=== PATIENT | female | born 1940 | race Hispanic/Latino ===

== ENCOUNTER 2018-09-24 19:22 | Observation (INO) | payer MEDICARE ==
[2018-09-24 19:22] VITALS: PULSE 81
[2018-09-24 19:30] VITALS: BMI 26.1
[2018-09-24 19:41] VITALS: RESP 18
--- NOTE | 2018-09-24 20:25 | ED PDOC ---
Arrival/HPI - History of Present Illness Narrative History of Present Illness (Text): 09/24/18 20:39 Patient is a 78-year-old F with PMH of Atrial Fibrillation (on Pradaxa) CAD s/p stents x 3, cholelithiasis, HTN, HLD, who Presents to [facility] [facility] Department for left shoulder pain that began 2 days ago. Patient reports she was vacuuming when she noticed sudden onset left shoulder pain that was constant and non- radiating. Patient quantifies the pain as 5/10 at its worst. Provoking factors include shoulder flexion and abduction past 90 degrees. Patient denies anything helping with the pain. Of note, Patient also admits to intermittent throbbing chest pain and states she has "a heart condition." Patient otherwise denies recent illness, travel, trauma, SOB, dizziness, BAHENA, fever, numbness/tingling, edema, and/or rash. PMH: CAD, cholelithiasis, HTN, A-fib, HLD PSH: Thyroid surgery (2012), Cardiac Stent x 3 (1994) SH: Current Smoker x 1ppd, Social ETOH - avg 2 drinks /mo, Denies illicit drug use; lives in senior apartment complex, ambulates without assistance FH: Father @ 45 2/2 SC, Sister @65 2/2 SC, Mom 2/2 stroke Home Meds: Pradaxa 150mg daily, Digoxin 0.125 mg daily, Crestor 5mg HS, Metoprolol 25mg daily, Furosomide 40mg daily, Amlodipine 10mg daily All: Seasonal Pollen (Itching throat) [facility] PCP: Mony Time/Duration: < week (48 hours) Symptom Onset: Sudden Symptom Course: Unchanged Quality: Aching, Throbbing Severity Level: 5 Activities at Onset: Light (vacuuming) <Lukasz Rebollar - Last Filed: 09/24/18 21:35> - General Historian: Patient <Tristin Yi - Last Filed: 09/24/18 22:21> - General Chief Complaint: Upper Extremity Problem/Injury Time Seen by Provider: 09/24/18 19:36 Past Medical History - Provider Review Nursing Documentation Reviewed: Yes - Infectious Disease Hx of Infectious Diseases: None - Tetanus Immunization Tetanus Immunization: Unknown - Cardiac Hx Cardiac Disorders: Yes Hx Cardiac Arrhythmia: Yes Hx Pacemaker: No - Pulmonary Hx Respiratory Disorders: No (SMOKES > 3PPD) - Neurological Hx Neurological Disorder: Yes Hx Transient Ischemic Attacks (TIA): Yes - HEENT Hx HEENT Disorder: Yes (LEFT EAR INFECTION) - Renal Hx Renal Disorder: No - Endocrine/Metabolic Hx Endocrine Disorders: Yes Hx Diabetes Mellitus Type 2: Yes - Hematological/Oncological Hx Blood Transfusions: No Hx Blood Transfusion Reaction: No - Integumentary Hx Dermatological Disorder: No - Musculoskeletal/Rheumatological Hx Musculoskeletal Disorders: Yes Hx Falls: No Hx Herniated Disk: Yes - Gastrointestinal Hx Gastrointestinal Disorders: Yes Hx Gall Bladder Disease: Yes (CHOLECYSTECTOMY) - Genitourinary/Gynecological Hx Genitourinary Disorders: No - Psychiatric Hx Emotional Abuse: No Hx Physical Abuse: No Hx Substance Use: No - Past Surgical History Past Surgical History: No Previous - Surgical History Hx Cardiac Catheterization: Yes Hx Cholecystectomy: Yes Hx Coronary Stent: Yes (x3) - Anesthesia Hx Anesthesia Reactions: No Hx Malignant Hyperthermia: No - Suicidal Assessment Feels Threatened In Home Enviroment: No <Lukasz Rebollar - Last Filed: 09/24/18 21:35> Family/Social History - Physician Review Nursing Documentation Reviewed: Yes Family/Social History: CAD/SC Smoking Status: Former Smoker Hx Alcohol Use: Yes (OCCASIONALLY) Hx Substance Use: No <Lukasz Rebollar - Last Filed: 09/24/18 21:35> Allergies/Home Meds <Lukasz Rebollar - Last Filed: 09/24/18 21:35> <Tristin Yi - Last Filed: 09/24/18 22:21> Allergies/Adverse Reactions: Allergies No Known Allergies Allergy (Verified 06/17/16 16:10) Home Medications: Home Meds Medication Instructions Recorded Confirmed Dabigatran [Pradaxa] 150 mg PO DAILY 09/24/18 09/24/18 Digoxin [Digitek] 125 mcg PO DAILY 09/24/18 09/24/18 Furosemide [Lasix] 40 mg PO DAILY 09/24/18 09/24/18 Metoprolol Succinate [Kapspargo 25 mg PO DAILY 09/24/18 09/24/18 Sprinkle] Rosuvastatin Calcium [Crestor] 5 mg PO HS 09/24/18 09/24/18 amLODIPine [Norvasc] 10 mg PO DAILY 09/24/18 09/24/18 Review of Systems - Review of Systems Constitutional: Normal. absent: Fevers Eyes: Normal. absent: Vision Changes, Eye Pain ENT: Normal Respiratory: Normal. absent: SOB, Cough, Wheezing Cardiovascular: Chest Pain. absent: Palpitations, Edema, Calf Pain, Syncope Gastrointestinal: Normal. absent: Abdominal Pain, Diarrhea, Nausea, Vomiting Genitourinary Female: Normal. absent: Dysuria Musculoskeletal: Other (left shoulder pain ) Skin: Normal. absent: Rash Neurological: Normal. absent: Headache, Dizziness, Focal Weakness Endocrine: Normal Hemo/Lymphatic: Normal Psychiatric: Normal <Lukasz Rebollar - Last Filed: 09/24/18 21:35> - Physician Review All systems were reviewed & negative as marked: Yes <Tristin Yi - Last Filed: 09/24/18 22:21> Physical Exam Vital Signs Reviewed: Yes Vital Signs Temp Pulse Resp BP Pulse Ox 09/24/18 19:40 97.6 F 91 H 18 140/99 H 97 Temperature: Afebrile Blood Pressure: Hypertensive Pulse: Irregular Respiratory Rate: Normal Appearance: Positive for: Well-Appearing, Non-Toxic, Comfortable Pain Distress: None Mental Status: Positive for: Alert and Oriented X 3 - Systems Exam Head: Present: Atraumatic, Normocephalic. No: Tenderness, Contusion Pupils: Present: PERRL Extroacular Muscles: Present: EOMI Conjunctiva: Present: Normal. No: Icteric Mouth: Present: Moist Mucous Membranes Neck: Present: Normal Range of Motion. No: Meningeal Signs, MIDLINE TENDERNESS, JVD Respiratory/Chest: Present: Clear to Auscultation, Good Air Exchange. No: Respiratory Distress, Accessory Muscle Use, Wheezes, Decreased Breath Sounds, Rales, Retracting, Rhonchi, Tachypneic Cardiovascular: Present: Irregular Rhythm. No: Murmurs Abdomen: Present: Normal Bowel Sounds. No: Tenderness, Distention, Peritoneal Signs Back: Present: Normal Inspection. No: CVA Tenderness, Midline Tenderness Upper Extremity: Present: Normal Inspection, Normal ROM (Normal L shoulder passive ROM; decreased L shoudler ROM with active flexion and abduction ), NORMAL PULSES, Neurovascularly Intact. No: Cyanosis, Edema, Tenderness, Swelling, Deformity Lower Extremity: Present: Normal Inspection. No: Edema Neurological: Present: GCS=15, CN II-XII Intact, Speech Normal Skin: Present: Warm, Dry, Normal Color. No: Rashes <Lukasz Rebollar - Last Filed: 09/24/18 21:35> Vital Signs Temp Pulse Resp BP Pulse Ox 09/24/18 19:40 97.6 F 91 H 18 140/99 H 97 <Tristin Yi - Last Filed: 09/24/18 22:21> Medical Decision Making ED Course and Treatment: 09/24/18 20:55 IMPRESSION: Patient is a 78-year-old F with PMH of Atrial Fibrillation (on Pradaxa) CAD s/p stents x 3, cholelithiasis, HTN, HLD, who Presents to [facility] Emergency Department for left shoulder pain that began 2 days ago. ASSESSMENT: - Atrial Fibrillation - Left Shoulder Pain PLAN: - EKG - CXR - CBC - CMP - Troponin - PT/PTT 09/24/18 20:57 CBC reveals mild leukocytosis 09/24/18 21:[address] Samayoa and Resident Physician. Patient accepted under Dr. Samayoa's service for observation in Telemetry; Rule-Out ACS - RAD Interpretation Radiology Orders: 09/24/18 20:06 CHEST PORTABLE [RAD] Stat - EKG Interpretation EKG Interpretation (Text): 09/24/18 20:54 atrial fibrillation; unchanged from previous <Lukasz Rebollar - Last Filed: 09/24/18 21:35> ED Course and Treatment: In agreement with resident note, which includes further HPI details. Patient was seen and evaluated with resident, came up with plan and treatment together. 78 year old female presents left shoulder pain that began 2 days ago and also admits to intermittent throbbing chest pain due to a "heart condition". Plan: -- Labs -- EKG -- Chest X-ray -- Urinalysis CXR Impression: As read by me, no acute process. - Lab Interpretations Lab Results: PT 13.7 SECONDS (9.4-12.5) H 09/24/18 19:45 INR 1.23 09/24/18 19:45 APTT 60.0 Seconds (26.9-38.3) H 09/24/18 19:45 Troponin I < 0.01 ng/mL 09/24/18 19:45 Total Bilirubin 0.7 mg/dL (0.2-1.3) 09/24/18 19:45 AST 29 U/L (14-36) 09/24/18 19:45 ALT 24 U/L (7-56) 09/24/18 19:45 Alkaline Phosphatase 107 U/L (38-126) 09/24/18 19:45 Total Protein 8.0 g/dL (5.8-8.3) 09/24/18 19:45 Albumin 4.4 g/dL (3.0-4.8) 09/24/18 19:45 Globulin 3.6 gm/dL 09/24/18 19:45 Albumin/Globulin Ratio 1.2 (1.1-1.8) 09/24/18 19:45 I have reviewed the lab results: Yes - RAD Interpretation Radiology Orders: 09/24/18 20:06 CHEST PORTABLE [RAD] Stat Ampoule Sealer: ED Physician - EKG Interpretation Interpreted by ED Physician: Yes Type: 12 lead EKG <Tristin Yi - Last Filed: 09/24/18 22:21> - PA / SPINNING MACHINE TENDER / Resident Statement MD/DO has reviewed & agrees with the documentation as recorded. MD/DO has examined the patient and agrees with the treatment plan. - Scribe Statement The provider has reviewed the documentation as recorded by the Vita Johnson Provider Scribe Attestation: All medical record entries made by the Lucitaibmercedes were at my direction and personally dictated by me. I have reviewed the chart and agree that the record accurately reflects my personal performance of the history, physical exam, medical decision making, and the department course for this patient. I have also personally directed, reviewed, and agree with the discharge instructions and disposition. <Tristin Yi - Last Filed: 09/24/18 22:21> Disposition/Present on Arrival - Present on Arrival Any Indicators Present on Arrival: No History of DVT/PE: No History of Uncontrolled Diabetes: No Urinary Catheter: No History of Decub. Ulcer: No History Surgical Site Infection Following: None - Disposition Have Diagnosis and Disposition been Completed?: Yes Disposition Time: 21:37 Patient Plan: Observation, Telemetry <Lukasz Rebollar - Last Filed: 09/24/18 21:35> <Tristin Yi - Last Filed: 09/24/18 22:21> - Disposition Diagnosis: Chest pain, Shoulder pain, left Disposition: HOSPITALIZED Patient Problems: Current Active Problems Problem Status Onset Chest pain Acute Shoulder pain, left Acute Condition: GUARDED
[2018-09-24 20:45] LABS: BASO # 0.03 K/mm3 (0.0-2.0); BASO % 0.2 % (0.0-3.0); EOS # 0.1 (0.0-0.7); EOS % 0.8 % (1.5-5.0); HEMOGLOBIN 15.3 g/dL (12.0-16.0); LYMPH # 3.9 (1.2-3.4); LYMPH % 27.8 % (22.0-35.0); MEAN CELL VOLUME 92.2 fl (80.0-105.0); MEAN CORPUSCULAR HEMOGLOBIN 30.7 pg (25.0-35.0); MEAN CORPUSCULAR HGB CONC 33.3 g/dl (31.0-37.0); MEAN PLATELET VOLUME 10.7 fl (7.0-11.0); MONO # 1.2 (0.1-0.6); MONO % 8.4 % (1.0-6.0); RBC 4.98 10^6/uL (3.5-6.1); RED CELL DISTRIBUTION WIDTH 13.8 % (11.5-14.5); WHITE BLOOD COUNT 13.9 10^3/uL (4.5-11.0)
[2018-09-24 20:48] LABS: INR 1.23; PROTHROMBIN TIME 13.7 SECONDS (9.4-12.5)
[2018-09-24 20:52] LABS: ALB/GLOB RATIO 1.2 (1.1-1.8); ALBUMIN 4.4 g/dL (3.0-4.8); BLOOD UREA NITROGEN 16 mg/dL (7-21); CALCIUM 9.2 mg/dL (8.4-10.5); GFR NON-AFRICAN AMERICAN > 60
[2018-09-24 20:58] LABS: ALT/SGPT 24 U/L (7-56); AST/SGOT 29 U/L (14-36)
[2018-09-24 21:11] LABS: TROPONIN I < 0.01 ng/mL
[2018-09-24 22:47] LABS: HDL CHOLESTEROL 39 mg/dL (29-60)
[2018-09-24 22:58] LABS: LDL CHOLESTEROL 88 mg/dL (0-129)
[2018-09-24 23:05] LABS: FREE T4 0.73 ng/dL (0.78-2.19)
--- NOTE | 2018-09-24 23:17 | CP.PCM.HP ---
<AnkitFrantz - Last Filed: 09/25/18 01:37> History of Present Illness - History of Present Illness History of Present Illness: Frantz Pham, PGY1 H&P Note for Dr. Banks cc: "cp with left shoulder pain x1 day ago" Patient is a 78-year-old F with PMH of Atrial Fibrillation (on Pradaxa) CAD s/p stents x 3, cholelithiasis, HTN, HLD, DM II who [place] [facility] [place] for chest pain and left shoulder pain that began 1 day ago. In the ED, Vitals: Temp 97.6, HR 91, RR 18, BP 140/99, SaO2 97%. EKG showed afib which is unchanged from prior. CXR showed no active disease. Medical team evaluated patient in the ED. Patient reports she was vacuuming when she noticed sudden onset left shoulder pain that was constant. It is non-radiating. In the ED, pain was rated 5/10 at its worst. Pain is worse with movement of the left shoulder. Patient denies anything helping with the pain. Patient also has associated chest pain. She says the pain feels pressure like, it is located along the left axillary area and it also worsened with movement. Patient says that the chest pain does not feel like the DC that she had prior. Coughing makes the pain worse. She also endorsed watery eyes and occasional runny nose. Patient otherwise denies recent illness, travel, and trauma to the area. She denies SOB, dizziness, lightheadedness, headache, fever, numbness/tingling of the extremities. A full 12 point ROS was conducted and unremarkable except as stated above. PMD: [place] Pharmacy: [facility] PMH: CAD (stents x3), cholelithiasis, HTN, HLD, A-fib (on Pradaxa), HLD, DMII PSH: Thyroid surgery (2012), Cardiac Stent x 3 (1994) SH: Current Smoker x 1ppd, Social ETOH - avg 2 drinks /mo, Denies illicit drug use; lives in senior apartment complex, ambulates without assistance FH: Father @ 45 2/2 DC, Sister @65 2/2 DC, Mom 2/2 stroke Home Meds: Pradaxa 150mg daily, Digoxin 0.125 mg daily, Crestor 5mg HS, Metoprolol 25mg daily, Furosomide 40mg daily, Amlodipine 10mg daily All: Seasonal Pollen (Itching throat) Present on Admission - Present on Admission Any Indicators Present on Admission: No Past Patient History - Infectious Disease Hx of Infectious Diseases: None - Tetanus Immunizations Tetanus Immunization: Unknown - Past Social History Smoking Status: Heavy Smoker > 10 Cigarettes Daily - CARDIAC Hx Cardiac Disorders: Yes Hx Cardia Arrhythmia: Yes (afib on pradaxa) Hx Congestive Heart Failure: No Hx Pacemaker: No - PULMONARY Hx Respiratory Disorders: Yes (SMOKES > 1PPD) - NEUROLOGICAL Hx Neurological Disorder: No Hx Transient Ischemic Attacks (TIA): No (denies) - HEENT Hx HEENT Problems: Yes (LEFT EAR INFECTION) - RENAL Hx Chronic Kidney Disease: No - ENDOCRINE/METABOLIC Hx Endocrine Disorders: No Hx Diabetes Mellitus Type 2: No (boarderline) - HEMATOLOGICAL/ONCOLOGICAL Hx Blood Disorders: No - INTEGUMENTARY Hx Dermatological Problems: No - MUSCULOSKELETAL/RHEUMATOLOGICAL Hx Musculoskeletal Disorders: Yes Hx Falls: No Hx Fractures: Yes (left wrist) - GASTROINTESTINAL Hx Gastrointestinal Disorders: Yes Hx Gall Bladder Disease: Yes (CHOLECYSTECTOMY) - GENITOURINARY/GYNECOLOGICAL Hx Genitourinary Disorders: No - PSYCHIATRIC Hx Psychophysiologic Disorder: No Hx Emotional Abuse: No Hx Physical Abuse: No - SURGICAL HISTORY Hx Surgeries: Yes (stent placement, thyroidectomy) Hx Cardiac Catheterization: Yes Hx Cholecystectomy: Yes Hx Coronary Stent: Yes (x3) - ANESTHESIA Hx Anesthesia Reactions: No Hx Malignant Hyperthermia: No Meds Allergies/Adverse Reactions: Allergies Allergy/AdvReac Type Severity Reaction Status Date / Time No Known Allergies Allergy Verified 06/17/16 16:10 Physical Exam - Constitutional Appears: No Acute Distress - Head Exam Head Exam: ATRAUMATIC, NORMAL INSPECTION, NORMOCEPHALIC - Eye Exam Eye Exam: EOMI, Normal appearance - ENT Exam ENT Exam: Mucous Membranes Moist, Normal Exam - Respiratory Exam Respiratory Exam: Clear to Auscultation Bilateral, NORMAL BREATHING PATTERN. absent: Rales, Rhonchi, Wheezes - Cardiovascular Exam Cardiovascular Exam: RRR, +S1, +S2 Additional comments: Pain is not reproducible on exam. Patient has prominent xiphoid process. - GI/Abdominal Exam GI & Abdominal Exam: Normal Bowel Sounds, Soft. absent: Distended, Guarding, Rebound, Rigid, Tenderness - Extremities Exam Extremities exam: Positive for: normal capillary refill, normal inspection, pe kaela pulses present. Negative for: calf tenderness, pedal edema, tenderness - Back Exam Back exam: NORMAL INSPECTION - Neurological Exam Neurological exam: Alert, Oriented x3 - Psychiatric Exam Psychiatric exam: Normal Affect, Normal Mood - Skin Skin Exam: Dry, Intact, Normal Color, Warm Results - Vital Signs Recent Vital Signs: Last Vital Signs Temp 97.6 F 09/24/18 19:40 Pulse 91 H 09/24/18 19:40 Resp 18 09/24/18 22:47 BP 140/99 H 09/24/18 19:40 Pulse Ox 97 09/24/18 19:40 - Labs Result Diagrams: 09/24/18 19:45 09/24/18 19:45 Labs: Laboratory Results - last 24 hr 09/24/18 09/24/18 09/24/18 19:45 19:45 19:45 WBC 13.9 H RBC 4.98 Hgb 15.3 Hct 45.9 MCV 92.2 MCH 30.7 MCHC 33.3 RDW 13.8 Plt Count 242 MPV 10.7 Neut % (Auto) 62.8 Lymph % (Auto) 27.8 Hickman % (Auto) 8.4 H Eos % (Auto) 0.8 L Baso % (Auto) 0.2 Lymph # (Auto) 3.9 H Hickman # (Auto) 1.2 H Eos # (Auto) 0.1 Baso # (Auto) 0.03 Absolute Neuts (auto) 8.73 H PT 13.7 H INR 1.23 APTT 60.0 H Sodium 142 Potassium 3.4 L Chloride 106 Carbon Dioxide 26 Anion Gap 14 BUN 16 Creatinine 0.6 L Est GFR ( Amer) > 60 Est GFR (Non-Af Amer) > 60 Random Glucose 111 H Calcium 9.2 Total Bilirubin 0.7 AST 29 ALT 24 Alkaline Phosphatase 107 Troponin I < 0.01 Total Protein 8.0 Albumin 4.4 Globulin 3.6 Albumin/Globulin Ratio 1.2 Triglycerides Cholesterol LDL Cholesterol Direct HDL Cholesterol Free T4 09/24/18 09/24/18 19:45 19:45 WBC RBC Hgb Hct MCV MCH MCHC RDW Plt Count MPV Neut % (Auto) Lymph % (Auto) Hickman % (Auto) Eos % (Auto) Baso % (Auto) Lymph # (Auto) Hickman # (Auto) Eos # (Auto) Baso # (Auto) Absolute Neuts (auto) PT INR APTT Sodium Potassium Chloride Carbon Dioxide Anion Gap BUN Creatinine Est GFR ( Amer) Est GFR (Non-Af Amer) Random Glucose Calcium Total Bilirubin AST ALT Alkaline Phosphatase Troponin I Total Protein Albumin Globulin Albumin/Globulin Ratio Triglycerides 111 Cholesterol 152 LDL Cholesterol Direct 88 HDL Cholesterol 39 Free T4 0.73 L Assessment & Plan - Assessment and Plan (Free Text) Assessment: Patient is a 78-year-old F with PMH of Atrial Fibrillation (on Pradaxa) CAD s/p stents x 3, cholelithiasis, HTN, HLD, DM II who [place] [facility] [place] chest pain and left shoulder pain that began 1 day ago. Patient will be admitted for chest pain likely musculoskeletal - r/o ACS. Plan: Chest Pain - r/o ACS, likely musculoskeletal origin - Lidoderm patch to the left shoulder - Flexeril 5 mg HS - Cardio consulted (Dr. Reynolds). Follow up recs. - Tylenol q6 prn for pain control - trop negative x1; trend trops - TSH - A1c - Lipid panel - EKG: showed Afib without RVR, unchanged from previous. Hx of Afib - Digoxin toxicity level negative - c/w digoxin home med for rate control - c/w Pradaxa Hx Smoking - counseled on smoking cessation - nicotine patch Hx HLD - c/w Lipitor home med - lipid panel ordered Hx HTN - c/w Norvasc home med - c/w metoprolol home med Diet: HHD Dispo: will monitor patient on the floor. Case was discussed and reviewed with Attending Physician, Dr. Banks <Olive Banks - Last Filed: 09/25/18 18:57> Results - Vital Signs Recent Vital Signs: Last Vital Signs Temp 97.8 F 09/25/18 07:40 Pulse 55 L 09/25/18 10:24 Resp 18 09/25/18 07:40 BP 121/64 09/25/18 10:25 Pulse Ox 94 L 09/25/18 07:40 - Labs Result Diagrams: 09/25/18 05:00 09/25/18 05:00 Labs: Laboratory Results - last 24 hr 09/24/18 09/24/18 09/24/18 19:45 19:45 19:45 WBC 13.9 H RBC 4.98 Hgb 15.3 Hct 45.9 MCV 92.2 MCH 30.7 MCHC 33.3 RDW 13.8 Plt Count 242 MPV 10.7 Neut % (Auto) 62.8 Lymph % (Auto) 27.8 Hickman % (Auto) 8.4 H Eos % (Auto) 0.8 L Baso % (Auto) 0.2 Lymph # (Auto) 3.9 H Hickman # (Auto) 1.2 H Eos # (Auto) 0.1 Baso # (Auto) 0.03 Absolute Neuts (auto) 8.73 H PT 13.7 H INR 1.23 APTT 60.0 H Sodium 142 Potassium 3.4 L Chloride 106 Carbon Dioxide 26 Anion Gap 14 BUN 16 Creatinine 0.6 L Est GFR ( Amer) > 60 Est GFR (Non-Af Amer) > 60 Random Glucose 111 H Hemoglobin A1c Calcium 9.2 Magnesium Total Bilirubin 0.7 AST 29 ALT 24 Alkaline Phosphatase 107 Troponin I < 0.01 Total Protein 8.0 Albumin 4.4 Globulin 3.6 Albumin/Globulin Ratio 1.2 Triglycerides Cholesterol LDL Cholesterol Direct HDL Cholesterol Free T4 TSH 3rd Generation Digoxin 09/24/18 09/24/18 09/24/18 19:45 19:45 19:45 WBC RBC Hgb Hct MCV MCH MCHC RDW Plt Count MPV Neut % (Auto) Lymph % (Auto) Hickman % (Auto) Eos % (Auto) Baso % (Auto) Lymph # (Auto) Hickman # (Auto) Eos # (Auto) Baso # (Auto) Absolute Neuts (auto) PT INR APTT Sodium Potassium Chloride Carbon Dioxide Anion Gap BUN Creatinine Est GFR ( Amer) Est GFR (Non-Af Amer) Random Glucose Hemoglobin A1c 6.7 H Calcium Magnesium Total Bilirubin AST ALT Alkaline Phosphatase Troponin I Total Protein Albumin Globulin Albumin/Globulin Ratio Triglycerides 111 Cholesterol 152 LDL Cholesterol Direct 88 HDL Cholesterol 39 Free T4 0.73 L TSH 3rd Generation 6.92 H Digoxin 09/24/18 09/25/18 09/25/18 19:45 00:15 05:00 WBC RBC Hgb Hct MCV MCH MCHC RDW Plt Count MPV Neut % (Auto) Lymph % (Auto) Hickman % (Auto) Eos % (Auto) Baso % (Auto) Lymph # (Auto) Hickman # (Auto) Eos # (Auto) Baso # (Auto) Absolute Neuts (auto) PT INR APTT Sodium 140 Potassium 4.2 Chloride 108 H Carbon Dioxide 27 Anion Gap 9 L BUN 14 Creatinine 0.6 L Est GFR ( Amer) > 60 Est GFR (Non-Af Amer) > 60 Random Glucose 101 Hemoglobin A1c Calcium 8.8 Magnesium 2.0 Total Bilirubin 1.4 H AST 28 ALT 20 Alkaline Phosphatase 89 Troponin I < 0.01 < 0.01 Total Protein 7.2 Albumin 4.0 Globulin 3.2 Albumin/Globulin Ratio 1.3 Triglycerides Cholesterol LDL Cholesterol Direct HDL Cholesterol Free T4 TSH 3rd Generation Digoxin < 0.4 L 09/25/18 09/25/18 05:00 12:00 WBC 10.7 D RBC 4.65 Hgb 14.3 Hct 42.8 MCV 92.0 MCH 30.8 MCHC 33.4 RDW 13.8 Plt Count 215 MPV 10.5 Neut % (Auto) 58.4 Lymph % (Auto) 30.6 Hickman % (Auto) 10.0 H Eos % (Auto) 0.7 L Baso % (Auto) 0.3 Lymph # (Auto) 3.3 Hickman # (Auto) 1.1 H Eos # (Auto) 0.1 Baso # (Auto) 0.03 Absolute Neuts (auto) 6.24 PT INR APTT Sodium Potassium Chloride Carbon Dioxide Anion Gap BUN Creatinine Est GFR ( Amer) Est GFR (Non-Af Amer) Random Glucose Hemoglobin A1c Calcium Magnesium Total Bilirubin AST ALT Alkaline Phosphatase Troponin I < 0.01 Total Protein Albumin Globulin Albumin/Globulin Ratio Triglycerides Cholesterol LDL Cholesterol Direct HDL Cholesterol Free T4 TSH 3rd Generation Digoxin Attending/Attestation - Attestation I have personally seen and examined this patient.: Yes I have fully participated in the care of the patient.: Yes I have reviewed all pertinent clinical information: Yes
[2018-09-25] MEDS ORDERED: Potassium Chloride 20 mEq ER Tab PO ONE (04:55)
[2018-09-25] MEDS ORDERED: Pantoprazole 40 mg EC Tab PO SCH (06:00)
[2018-09-25 06:36] LABS: BASO # 0.03 K/mm3 (0.0-2.0); BASO % 0.3 % (0.0-3.0); EOS # 0.1 (0.0-0.7); EOS % 0.7 % (1.5-5.0); HEMOGLOBIN 14.3 g/dL (12.0-16.0); LYMPH # 3.3 (1.2-3.4); LYMPH % 30.6 % (22.0-35.0); MEAN CORPUSCULAR HEMOGLOBIN 30.8 pg (25.0-35.0); MEAN CORPUSCULAR HGB CONC 33.4 g/dl (31.0-37.0); MEAN PLATELET VOLUME 10.5 fl (7.0-11.0); MONO # 1.1 (0.1-0.6); RBC 4.65 10^6/uL (3.5-6.1); RED CELL DISTRIBUTION WIDTH 13.8 % (11.5-14.5); WHITE BLOOD COUNT 10.7 10^3/uL (4.5-11.0)
[2018-09-25 06:41] LABS: ALB/GLOB RATIO 1.3 (1.1-1.8); ALT/SGPT 20 U/L (7-56); AST/SGOT 28 U/L (14-36); BLOOD UREA NITROGEN 14 mg/dL (7-21); CALCIUM 8.8 mg/dL (8.4-10.5); GFR NON-AFRICAN AMERICAN > 60
[2018-09-25 06:53] LABS: TROPONIN I < 0.01 ng/mL
[2018-09-25 07:40] VITALS: BP 121/64; PULSE 55; TEMP 97.8; O2SAT 94
[2018-09-25] MEDS ORDERED: Metoprolol Succinate 25 mg XL Tab PO SCH (10:00)
[2018-09-25] MEDS ORDERED: Lidocaine 5% Patch TD SCH (10:00)
[2018-09-25] MEDS ORDERED: Digoxin 125 mcg (0.125 mg) Tab PO SCH (14:00)
--- NOTE | 2018-09-25 17:57 | RAD ---
Date of service: 09/24/2018 HISTORY: chest pain COMPARISON: Comparison is made with 03/16/2018 FINDINGS: LUNGS: No active pulmonary disease. PLEURA: No significant pleural effusion identified, no pneumothorax apparent. CARDIOVASCULAR: No aortic atherosclerotic calcification present. Normal cardiac size. No pulmonary vascular congestion. OSSEOUS STRUCTURES: No significant abnormalities. VISUALIZED UPPER ABDOMEN: Normal. OTHER FINDINGS: None. IMPRESSION: No active disease.
--- NOTE | 2018-09-25 18:35 | CP.PCM.DIS ---
Provider - Provider Date of Admission: 09/24/18 21:36 Attending physician: Belkis Pantoja MD Primary care physician: Florin Manrique MD Consults: 09/24/18 22:33 Physician Consult Routine Comment: Consulting Provider: Terry Reynolds Consulting Physician: Terry Reynolds Reason for Consult: chest pain r/o ACS; Hx of CAD Time Spent in preparation of Discharge (in minutes): 45 Diagnosis - Discharge Diagnosis (1) Chest pain Status: Acute (2) Shoulder pain, left Status: Acute Hospital Course - Lab Results Lab Results: Most Recent Lab Values WBC 10.7 10^3/uL (4.5-11.0) D 09/25/18 05:00 RBC 4.65 10^6/uL (3.5-6.1) 09/25/18 05:00 Hgb 14.3 g/dL (12.0-16.0) 09/25/18 05:00 Hct 42.8 % (36.0-48.0) 09/25/18 05:00 MCV 92.0 fl (80.0-105.0) 09/25/18 05:00 MCH 30.8 pg (25.0-35.0) 09/25/18 05:00 MCHC 33.4 g/dl (31.0-37.0) 09/25/18 05:00 RDW 13.8 % (11.5-14.5) 09/25/18 05:00 Plt Count 215 10^3/uL (120.0-450.0) 09/25/18 05:00 MPV 10.5 fl (7.0-11.0) 09/25/18 05:00 Neut % (Auto) 58.4 % (50.0-68.0) 09/25/18 05:00 Lymph % (Auto) 30.6 % (22.0-35.0) 09/25/18 05:00 Bullock % (Auto) 10.0 % (1.0-6.0) H 09/25/18 05:00 Eos % (Auto) 0.7 % (1.5-5.0) L 09/25/18 05:00 Baso % (Auto) 0.3 % (0.0-3.0) 09/25/18 05:00 Lymph # (Auto) 3.3 (1.2-3.4) 09/25/18 05:00 Bullock # (Auto) 1.1 (0.1-0.6) H 09/25/18 05:00 Eos # (Auto) 0.1 (0.0-0.7) 09/25/18 05:00 Baso # (Auto) 0.03 K/mm3 (0.0-2.0) 09/25/18 05:00 Absolute Neuts (auto) 6.24 (1.4-6.5) 09/25/18 05:00 PT 13.7 SECONDS (9.4-12.5) H 09/24/18 19:45 INR 1.23 09/24/18 19:45 APTT 60.0 Seconds (26.9-38.3) H 09/24/18 19:45 Sodium 140 mmol/L (132-148) 09/25/18 05:00 Potassium 4.2 mmol/L (3.6-5.0) 09/25/18 05:00 Chloride 108 mmol/L (98-107) H 09/25/18 05:00 Carbon Dioxide 27 mmol/L (21-33) 09/25/18 05:00 Anion Gap 9 (10-20) L 09/25/18 05:00 BUN 14 mg/dL (7-21) 09/25/18 05:00 Creatinine 0.6 mg/dl (0.7-1.2) L 09/25/18 05:00 Est GFR ( Amer) > 60 09/25/18 05:00 Est GFR (Non-Af Amer) > 60 09/25/18 05:00 Random Glucose 101 mg/dL (70-110) 09/25/18 05:00 Hemoglobin A1c 6.7 % (4.2-6.5) H 09/24/18 19:45 Calcium 8.8 mg/dL (8.4-10.5) 09/25/18 05:00 Magnesium 2.0 mg/dL (1.7-2.2) 09/25/18 05:00 Total Bilirubin 1.4 mg/dL (0.2-1.3) H 09/25/18 05:00 AST 28 U/L (14-36) 09/25/18 05:00 ALT 20 U/L (7-56) 09/25/18 05:00 Alkaline Phosphatase 89 U/L (38-126) 09/25/18 05:00 Troponin I < 0.01 ng/mL 09/25/18 12:00 Total Protein 7.2 g/dL (5.8-8.3) 09/25/18 05:00 Albumin 4.0 g/dL (3.0-4.8) 09/25/18 05:00 Globulin 3.2 gm/dL 09/25/18 05:00 Albumin/Globulin Ratio 1.3 (1.1-1.8) 09/25/18 05:00 Triglycerides 111 mg/dL (35-160) 09/24/18 19:45 Cholesterol 152 mg/dL (130-200) 09/24/18 19:45 LDL Cholesterol Direct 88 mg/dL (0-129) 09/24/18 19:45 HDL Cholesterol 39 mg/dL (29-60) 09/24/18 19:45 Free T4 0.73 ng/dL (0.78-2.19) L 09/24/18 19:45 TSH 3rd Generation 6.92 mIU/mL (0.46-4.68) H 09/24/18 19:45 Digoxin < 0.4 ng/mL (0.8-2.0) L 09/24/18 19:45 - Hospital Course Hospital Course: Upon Admission: Patient is a 78-year-old F with PMH of Atrial Fibrillation (on Pradaxa) CAD s/p stents x 3, cholelithiasis, HTN, HLD, DM II who presented to [facility] for chest pain and left shoulder pain that began 1 day ago. In the ED, Vitals: Temp 97.6, HR 91, RR 18, BP 140/99, SaO2 97%. EKG showed afib which is unchanged from prior. CXR showed no active disease. Medical team evaluated patient in the ED. Patient reports she was vacuuming when she noticed sudden onset left shoulder pain that was constant. It is non-radiating. In the ED, pain was rated 5/10 at its worst. Pain is worse with movement of the left shoulder. Patient denies anything helping with the pain. Patient also has associated chest pain. She says the pain feels pressure like, it is located along the left axillary area and it also worsened with movement. Patient says that the chest pain does not feel like the MO that she had prior. Coughing makes the pain worse. She also endorsed watery eyes and occasional runny nose. Patient otherwise denies recent illness, travel, and trauma to the area. She denies SOB, dizziness, lightheadedness, headache, fever, numbness/tingling of the extremities. Hospital Course: Pt was being worked up for chest pain r/o ACS. Pt had EKG in ED which showed Afib w/o RVR, unchanged from previous. Pt then had trops ordered which were trended and found to be negative x4. TSH was found to be elevated at 6.92, and free T4 was noted to be low at .73. Pt was started on low dose synthroid with follow up with her primary care doctor. Pts A1c was found to be elevated at 6.7. Pt was counseled on losing weight, low carb diet and regular exercise. Lipid panel for the pt was noted to be wnl. Cardio was consulted for the pt and cardio stated that the pt is cleared for d/c upon 3 negative trop values which were met later in the day. Pts pradaxa for afib was continued was continued during her hospitalization. HTN, the pts home norvasc and lopressor were resumed. For pts HLD, home lipitor was restarted., DM Upon gaining cardiac clearance the pt was informed of the plan for discharge. The pt expressed understanding and agreement with medical plan for discharge. All of pt and families questions were answered prior to d/c. For further details please refer to pts medical chart. Discharge Exam - Head Exam Head Exam: ATRAUMATIC, NORMAL INSPECTION, NORMOCEPHALIC - Eye Exam Eye Exam: EOMI, Normal appearance, PERRL - Respiratory Exam Respiratory Exam: Clear to PA & Lateral, Respiratory Distress, NORMAL BREATHING PATTERN, UNREMARKABLE. absent: Accessory Muscle Use, Rales, Rhonchi, Wheezes - Cardiovascular Exam Cardiovascular Exam: RRR, +S1, +S2. absent: Gallop, Rubs - GI/Abdominal Exam GI & Abdominal Exam: Normal Bowel Sounds, Soft, Unremarkable. absent: Distended, Firm, Guarding, Tenderness - Extremities Exam Extremities exam: normal inspection - Back Exam Back exam: NORMAL INSPECTION. absent: CVA tenderness (L), CVA tenderness (R) - Neurological Exam Neurological exam: Alert, Oriented x3 - Psychiatric Exam Psychiatric exam: Normal Affect, Normal Mood - Skin Skin Exam: Dry, Normal Color, Warm Discharge Plan - Discharge Medications Prescriptions: amLODIPine [Norvasc] 10 mg PO DAILY 30 Days #30 tab Aspirin [Adult Aspirin Regimen] 81 mg PO DAILY 30 Days #30 tablet. Cyclobenzaprine [Flexeril] 5 mg PO HS 3 Days #3 tab Digoxin [Digitek] 125 mcg PO DAILY 14 Days #14 tablet Furosemide [Lasix] 40 mg PO DAILY 30 Days #30 tab Levothyroxine [Synthroid] 25 mcg PO QAM 15 Days #15 tab Metoprolol Succinate XL [Toprol XL] 25 mg PO DAILY 30 Days #30 tab Rosuvastatin Calcium [Crestor] 5 mg PO HS 30 Days #30 tab - Follow Up Plan Condition: GUARDED Disposition: HOME/ ROUTINE Instructions: Chest Pain (DC) Additional Instructions: - Please follow up with your Primary Care Doctor, Dr. Manrique within 1 week of discharge from the hospital. - You were noted to have low thyroid levels, you were started on Synthroid 25 mcg daily, taken by mouth in the morning. Recheck your levels in 6 weeks with your primary care doctor. - You were started on another new medication: baby aspirin 81mg by mouth once d aily. Please take these new medications as directed and follow up with your primary care doctor for continued management. - Please follow up with your studio technician video operator after discharge from the hospital. - Continue taking your home medications as directed. - Your hemoglobin A1c for your diabetes was noted to be elevated at 6.7. It is advised to you to lose weight, eat low carbohydrate diet and exercise regularly. Follow up with your primary care doctor regarding need for medication and repeat level in 4 weeks. - When using Flexeril, please refrain from operating heavy machinery or driving. - If you are having any new symptoms or have a return of your symptoms please return to the Emergency Department. Referrals: Florin Manrique MD [Primary Care Provider] -
--- NOTE | 2018-09-25 20:27 | CON ---
DATE: 09/25/2018 REASON FOR THE CONSULTATION: Followup cardiac evaluation, history of coronary artery disease, history of stent, and history of chronic atrial fibrillation, on Pradaxa. REASON FOR DICTATION: Covering Dr. Saxena. BRIEF CLINICAL HISTORY: This is a 78-year-old female with a past medical history significant for coronary artery disease, status post stent 4-5 years ago; being followed by [facility]; history of chronic atrial fibrillation, on Pradaxa; came in with left-sided pain in the shoulder and the chest especially lying at the left side with mild tenderness and also pain on moving the shoulder. Denies any chest pain. Dyspnea on exertion. No chest pain on exertion. PAST MEDICAL HISTORY: Significant for chronic atrial fibrillation, on Pradaxa; history of diabetes; hypertension; history of coronary artery disease; history of stent 5 yeas ago at [facility] possibly in 1994. PAST SURGICAL HISTORY: Significant for history of thyroid surgery in 2012, used to follow up with , now the patient follow with Dr. Manrique and [facility]. CURRENT MEDICATIONS: The patient is taking at home metoprolol succinate 25 mg daily, amlodipine 10 mg daily, Lasix 40 mg daily, digoxin 0.125 mg daily, Pradaxa 150 mg daily, and 5 mg daily. ALLERGIES: NO KNOWN DRUG ALLERGIES. REVIEW OF SYSTEMS: As per HPI. PHYSICAL EXAMINATION: VITAL SIGNS: As follows; height of the patient 5 feet and 8 inches. Weight of the patient 172 pound. Body mass index 26 kg/m2. Temperature afebrile, heart rate 55, and blood pressure 121/64. HEENT: PERRLA. Extraocular muscles intact. NECK: Supple. No carotid bruit or thyromegaly. CHEST: Clear to auscultation. HEART: S1 and S2 regular. ABDOMEN: Soft. EXTREMITIES: Clubbing and cyanosis negative. LABORATORY DATA: Blood workup; WBC 10.7, hemoglobin 14.3, hematocrit 42.8, and platelet count 215. Chemistry shows sodium 140, potassium 4, chloride 108, carbon dioxide 27, anion gap of 9, BUN 14, and creatinine 0.6. Troponin 0.01 x3 negative. EKG shows AFib, rate at 55, low voltage, and no acute ST-T changes noted. IMPRESSION: A 78-year-old female with past medical history significant for coronary artery disease, status post stent many years ago at [facility] history of chronic atrial fibrillation, on Pradaxa; being followed by [facility]; and admitted with atypical chest pain and tenderness on the left side of the chest. So far, troponin remains negative. RECOMMENDATIONS: Continue digoxin. Continue Pradaxa. For risk stratification, the patient need stress test the patient to follow up with water reuse program manager at [facility] and scheduled stress test. Discuss with team resident, the patient is okay to be discharge. If the patient remains in hospital, we will transfer care tomorrow to Dr. Saxena. We will follow with you. Thank you Dr. Pantoja for providing us the opportunity in taking care of the patient, Kary Vázquez. Belkis Parrish MD
--- NOTE | 2018-09-25 21:30 | CARD ---
APPROVED REPORT Date of service: 09/24/2018 EKG Measurement Heart [id number] <Conclusion> Atrial fibrillation Left axis deviation Inferior infarct, age undetermined Nonspecific ST changes Abnormal ECG
--- NOTE | 2018-09-25 23:00 | CARD ---
APPROVED REPORT Date of service: 09/25/2018 EKG Measurement Heart [id number] <Conclusion> Atrial fibrillation with slow ventricular response with a competing junctional pacemaker Left axis deviation Possible Anterior infarct, age undetermined Diffuse NDSTT abnormalities CCR Abnormal ECG
== END 2018-09-25 13:48 | disposition home or self-care (01) ==
LOC: ED 19:22 → ERH 21:36 → 3RNO 22:33
PROVIDERS: ADMIT Internal Medicine; ATTEND Internal Medicine
DX: R07.89 Other chest pain (principal); E11.9 Type 2 diabetes mellitus without complications; E78.5 Hyperlipidemia, unspecified; E89.0 Postprocedural hypothyroidism; F17.210 Nicotine dependence, cigarettes, uncomplicated; I10 Essential (primary) hypertension; I25.10 Atherosclerotic heart disease of native coronary artery without angina pectoris; I48.2 Chronic atrial fibrillation; Z79.899 Other long term (current) drug therapy; Z82.3 Family history of stroke; Z86.73 Personal history of transient ischemic attack (TIA), and cerebral infarction without residual deficits; Z90.49 Acquired absence of other specified parts of digestive tract; Z95.5 Presence of coronary angioplasty implant and graft
CPT/HCPCS: 36415; 71045; 80053; 80061; 80162; 83036; 83735; 84439; 84443; 84484; 85025; 85610; 85730; 93005; 99285; G0378